=== PATIENT | female | born 1960 | race Caucasian/White ===

== ENCOUNTER 2022-08-12 12:59 | Inpatient (IN) | payer OTHER ==
[2022-08-12 13:33] VITALS: BMI 18.1
[2022-08-12] MEDS ORDERED: INSULIN SLIDING SCALE (NOVOLOG) 1 VIAL SQ ONE (14:34)
[2022-08-12] MEDS ORDERED: INSULIN (NOVOLOG) ASPART 100 UNITS/ML 10ML VIAL ONE (14:36)
[2022-08-12] MEDS ORDERED: LOPERAMIDE HCL 2 MG CAPSULE PO PRN (14:54)
[2022-08-12] MEDS ORDERED: NICOTINE 10 MG CARTRIDGE (INHALER) IH PRN (14:54)
[2022-08-12] MEDS ORDERED: IBUPROFEN 400 MG TABLET (FP) PO PRN (14:54)
[2022-08-12] MEDS ORDERED: P-EPHED 60MG/TRIPROLIDI 2.5MG TABLET PO PRN (14:54)
[2022-08-12] MEDS ORDERED: guaiFENesin 200 MG/10 ML 10 ML UNIT-DOSE CUPS PO PRN (14:54)
[2022-08-12] MEDS ORDERED: MAGNESIUM CITRATE 300 ML BOTTLE PO PRN (14:54)
[2022-08-12] MEDS ORDERED: PATIENT'S OWN MEDICATION (NON-FORMULARY) (Albuterol Sulfate [Proair Respiclick] 90 MCG Aer IH PRN (14:56)
[2022-08-12] MEDS: hydrOXYzine PAMOATE 25 MG CAPSULE (FP) PO SCH ×2 (18:47→22:12)
[2022-08-12] MEDS: MELATONIN 5 MG TABLETS PO SCH (22:12)
[2022-08-12] MEDS: MONTELUKAST NA 10 MG TABLET PO SCH (22:12)
[2022-08-12] MEDS: THIAMINE HCL 100 MG TABLET (FP) PO SCH (22:12)
[2022-08-12] MEDS: INSULIN SLIDING SCALE (NOVOLOG) 1 VIAL SQ SCH (22:13)
[2022-08-12] MEDS: ATORVASTATIN CA 40 MG TABLET (FP) PO SCH (22:14)
[2022-08-12] MEDS: BUDESONIDE/FORMETEROL FUMARATE 160/4.5 mcg INHALER IH SCH (22:14)
[2022-08-13] MEDS: hydrOXYzine PAMOATE 25 MG CAPSULE (FP) PO SCH ×5 (06:40→21:35)
[2022-08-13] MEDS ORDERED: INSULIN (NOVOLOG) ASPART 100 UNITS/ML 10ML VIAL ONE ×2 (06:44→16:39)
[2022-08-13] MEDS: INSULIN SLIDING SCALE (NOVOLOG) 1 VIAL SQ SCH ×4 (06:46→21:43)
[2022-08-13 09:51] LABS: ALBUMIN 3.3 g/dl (3.4-5.0)
[2022-08-13 09:52] LABS: BLOOD UREA NITROGEN 21.4 mg/dL (7-18)
[2022-08-13 09:55] LABS: CREATININE 0.9 mg/dL (0.55-1.3)
[2022-08-13 09:57] LABS: BILIRUBIN,TOTAL 0.2 mg/dL (0.2-1); TOT PROT 6.4 g/dl (6.4-8.2)
[2022-08-13 09:58] LABS: HEMATOCRIT 33.7 % (32.4-45.2); HEMOGLOBIN 10.7 GM/dL (10.7-15.3); MCH 29.3 pg (25.7-33.7); MCHC 31.8 g/dl (32.0-36.0); MEAN CELL VOLUME 92.3 fl (80-96); MEAN PLT VOLUME 8.9 fl (7.5-11.1); PLATELET COUNT 326 10^3/uL (134-434); RBC 3.65 M/mm3 (3.60-5.2); RDW 15.9 % (11.6-15.6)
[2022-08-13] MEDS: PANTOPRAZOLE 20 MG TABLET PO SCH (10:32)
[2022-08-13] MEDS: NICOTINE 7 MG/24 HOURS TOPICAL PATCH TD SCH (10:32)
[2022-08-13] MEDS: PRENATAL VITAMINS W/ FOLIC ACID TABLET (FP) PO SCH (10:32)
[2022-08-13] MEDS: BUDESONIDE/FORMETEROL FUMARATE 160/4.5 mcg INHALER IH SCH ×2 (10:32→21:34)
[2022-08-13] MEDS: ACETAMINOPHEN 325 MG TABLET (FP) PO PRN ×2 (10:33→21:47)
[2022-08-13 11:36] LABS: SYPHILIS W/ RPR CONF REACTIVE (NONREACTIVE)
[2022-08-13] MEDS: PATIENT'S OWN MEDICATION (NON-FORMULARY) (Umeclidinium Bromide [Incruse Ellipta] 62.5 MCG IH SCH (12:31)
[2022-08-13] MEDS: busPIRone HCL 5 MG TABLET PO SCH ×2 (13:17→21:34)
[2022-08-13] MEDS ORDERED: KETOCONAZOLE 2 % SHAMPOO 120 ML BOTTLE TP ONE (14:24)
[2022-08-13 14:59] LABS: PH,URINE 5.5 (5.0-8.0); URINE APPEARANCE CLEAR; URINE BILIRUBIN NEGATIVE (NEGATIVE); URINE COLOR YELLOW; URINE GLUCOSE (UA) 3+ (NEGATIVE); URINE KETONE NEGATIVE (NEGATIVE); URINE LEUK ESTERASE NEGATIVE (NEGATIVE); URINE NITRITE NEGATIVE (NEGATIVE); URINE PROTEIN NEGATIVE (NEGATIVE); URINE UROBILINOGEN 0.2 mg/dL (0.2-1.0)
[2022-08-13] MEDS: QUEtiapine FUMARATE 400 MG TABLET PO SCH (21:35)
[2022-08-13] MEDS: MONTELUKAST NA 10 MG TABLET PO SCH (21:35)
[2022-08-13] MEDS: ATORVASTATIN CA 40 MG TABLET (FP) PO SCH ×2 (21:35→21:40)
[2022-08-13] MEDS: LEVOTHYROXINE NA 112 MCG TABLET (FP) PO SCH (21:35)
[2022-08-13] MEDS: MELATONIN 5 MG TABLETS PO SCH (21:36)
[2022-08-13] MEDS: THIAMINE HCL 100 MG TABLET (FP) PO SCH (21:36)
[2022-08-14] MEDS: INSULIN SLIDING SCALE (NOVOLOG) 1 VIAL SQ SCH ×4 (06:37→21:59)
[2022-08-14] MEDS: hydrOXYzine PAMOATE 25 MG CAPSULE (FP) PO SCH ×5 (08:30→21:57)
[2022-08-14] MEDS: LEVOTHYROXINE NA 112 MCG TABLET (FP) PO SCH (08:30)
[2022-08-14] MEDS ORDERED: PATIENT'S OWN MEDICATION (NON-FORMULARY) (Fluticasone Propionate [Flovent Diskus] 50 MCG B IH SCH (10:00)
[2022-08-14] MEDS: PANTOPRAZOLE 20 MG TABLET PO SCH (11:01)
[2022-08-14] MEDS: BUDESONIDE/FORMETEROL FUMARATE 160/4.5 mcg INHALER IH SCH ×2 (11:01→21:57)
[2022-08-14] MEDS: NICOTINE 7 MG/24 HOURS TOPICAL PATCH TD SCH (11:03)
[2022-08-14] MEDS: PRENATAL VITAMINS W/ FOLIC ACID TABLET (FP) PO SCH (11:05)
[2022-08-14] MEDS: PATIENT'S OWN MEDICATION (NON-FORMULARY) (Umeclidinium Bromide [Incruse Ellipta] 62.5 MCG IH SCH (11:05)
[2022-08-14] MEDS: busPIRone HCL 5 MG TABLET PO SCH ×2 (11:05→21:56)
[2022-08-14] MEDS: ACETAMINOPHEN 325 MG TABLET (FP) PO PRN (11:08)
[2022-08-14] MEDS ORDERED: INSULIN (NOVOLOG) ASPART 100 UNITS/ML 10ML VIAL ONE ×2 (11:12→16:48)
[2022-08-14] MEDS ORDERED: INSULIN SLIDING SCALE (NOVOLOG) 1 VIAL SQ ONE (18:57)
[2022-08-14] MEDS: ATORVASTATIN CA 40 MG TABLET (FP) PO SCH (21:56)
[2022-08-14] MEDS: MONTELUKAST NA 10 MG TABLET PO SCH (21:56)
[2022-08-14] MEDS: QUEtiapine FUMARATE 400 MG TABLET PO SCH (21:57)
[2022-08-14] MEDS: THIAMINE HCL 100 MG TABLET (FP) PO SCH ×2 (21:57→22:01)
[2022-08-14] MEDS: MELATONIN 5 MG TABLETS PO SCH (21:57)
[2022-08-15] MEDS: hydrOXYzine PAMOATE 25 MG CAPSULE (FP) PO SCH ×5 (06:30→22:01)
[2022-08-15] MEDS ORDERED: INSULIN (NOVOLOG) ASPART 100 UNITS/ML 10ML VIAL ONE (06:36)
[2022-08-15] MEDS: INSULIN SLIDING SCALE (NOVOLOG) 1 VIAL SQ SCH ×4 (06:37→22:01)
[2022-08-15] MEDS: LEVOTHYROXINE NA 112 MCG TABLET (FP) PO SCH (06:59)
[2022-08-15] MEDS: BUDESONIDE/FORMETEROL FUMARATE 160/4.5 mcg INHALER IH SCH ×2 (10:15→22:02)
[2022-08-15] MEDS: NICOTINE 7 MG/24 HOURS TOPICAL PATCH TD SCH (10:16)
[2022-08-15] MEDS: PRENATAL VITAMINS W/ FOLIC ACID TABLET (FP) PO SCH (10:16)
[2022-08-15] MEDS: busPIRone HCL 5 MG TABLET PO SCH ×2 (10:16→22:01)
[2022-08-15] MEDS: PANTOPRAZOLE 20 MG TABLET PO SCH (10:16)
[2022-08-15] MEDS: PATIENT'S OWN MEDICATION (NON-FORMULARY) (Umeclidinium Bromide [Incruse Ellipta] 62.5 MCG IH SCH (10:18)
[2022-08-15] MEDS: MELATONIN 5 MG TABLETS PO SCH (22:01)
[2022-08-15] MEDS: MONTELUKAST NA 10 MG TABLET PO SCH (22:01)
[2022-08-15] MEDS: ATORVASTATIN CA 40 MG TABLET (FP) PO SCH (22:01)
[2022-08-15] MEDS: QUEtiapine FUMARATE 400 MG TABLET PO SCH (22:01)
[2022-08-15] MEDS: ACETAMINOPHEN 325 MG TABLET (FP) PO PRN (22:02)
[2022-08-16] MEDS ORDERED: INSULIN (NOVOLOG) ASPART 100 UNITS/ML 10ML VIAL ONE (06:18)
[2022-08-16] MEDS: LEVOTHYROXINE NA 112 MCG TABLET (FP) PO SCH (06:18)
[2022-08-16] MEDS: INSULIN SLIDING SCALE (NOVOLOG) 1 VIAL SQ SCH ×4 (06:19→21:58)
[2022-08-16] MEDS: hydrOXYzine PAMOATE 25 MG CAPSULE (FP) PO SCH ×2 (06:21→13:07)
[2022-08-16] MEDS: PANTOPRAZOLE 20 MG TABLET PO SCH (10:19)
[2022-08-16] MEDS: BUDESONIDE/FORMETEROL FUMARATE 160/4.5 mcg INHALER IH SCH ×2 (10:19→21:59)
[2022-08-16] MEDS: NICOTINE 7 MG/24 HOURS TOPICAL PATCH TD SCH (10:20)
[2022-08-16] MEDS: PRENATAL VITAMINS W/ FOLIC ACID TABLET (FP) PO SCH (10:20)
[2022-08-16] MEDS: busPIRone HCL 5 MG TABLET PO SCH ×2 (10:20→21:57)
[2022-08-16] MEDS: PATIENT'S OWN MEDICATION (NON-FORMULARY) (Umeclidinium Bromide [Incruse Ellipta] 62.5 MCG IH SCH (10:22)
[2022-08-16] MEDS: INSULIN (NOVOLOG) ASPART 100 UNITS/ML 10ML VIAL SQ SCH (17:04)
[2022-08-16] MEDS: MELATONIN 5 MG TABLETS PO SCH (21:57)
[2022-08-16] MEDS: QUEtiapine FUMARATE 400 MG TABLET PO SCH (21:57)
[2022-08-16] MEDS: THIAMINE HCL 100 MG TABLET (FP) PO SCH (21:57)
[2022-08-16] MEDS: ATORVASTATIN CA 40 MG TABLET (FP) PO SCH (21:57)
[2022-08-16] MEDS: MONTELUKAST NA 10 MG TABLET PO SCH (21:57)
[2022-08-17] MEDS: LEVOTHYROXINE NA 112 MCG TABLET (FP) PO SCH (06:22)
[2022-08-17] MEDS: INSULIN SLIDING SCALE (NOVOLOG) 1 VIAL SQ SCH ×4 (06:26→22:01)
[2022-08-17] MEDS: INSULIN (NOVOLOG) ASPART 100 UNITS/ML 10ML VIAL SQ SCH ×3 (06:26→16:58)
[2022-08-17] MEDS ORDERED: INSULIN (NOVOLOG) ASPART 100 UNITS/ML 10ML VIAL ONE (06:37)
[2022-08-17] MEDS: PRENATAL VITAMINS W/ FOLIC ACID TABLET (FP) PO SCH (10:40)
[2022-08-17] MEDS: NICOTINE 7 MG/24 HOURS TOPICAL PATCH TD SCH (10:40)
[2022-08-17] MEDS: PANTOPRAZOLE 20 MG TABLET PO SCH (10:40)
[2022-08-17] MEDS: BUDESONIDE/FORMETEROL FUMARATE 160/4.5 mcg INHALER IH SCH ×2 (10:41→23:10)
[2022-08-17] MEDS: PATIENT'S OWN MEDICATION (NON-FORMULARY) (Umeclidinium Bromide [Incruse Ellipta] 62.5 MCG IH SCH (10:42)
[2022-08-17] MEDS: busPIRone HCL 5 MG TABLET PO SCH ×2 (11:52→22:01)
[2022-08-17] MEDS: ATORVASTATIN CA 40 MG TABLET (FP) PO SCH (22:00)
[2022-08-17] MEDS: QUEtiapine FUMARATE 400 MG TABLET PO SCH (22:00)
[2022-08-17] MEDS: MONTELUKAST NA 10 MG TABLET PO SCH (22:00)
[2022-08-17] MEDS: THIAMINE HCL 100 MG TABLET (FP) PO SCH (22:01)
[2022-08-17] MEDS: MELATONIN 5 MG TABLETS PO SCH (22:01)
[2022-08-18] MEDS: INSULIN SLIDING SCALE (NOVOLOG) 1 VIAL SQ SCH ×4 (06:38→22:21)
[2022-08-18] MEDS: INSULIN (NOVOLOG) ASPART 100 UNITS/ML 10ML VIAL SQ SCH ×3 (06:40→16:49)
[2022-08-18] MEDS: LEVOTHYROXINE NA 112 MCG TABLET (FP) PO SCH (06:47)
[2022-08-18] MEDS: PANTOPRAZOLE 20 MG TABLET PO SCH (10:15)
[2022-08-18] MEDS: PRENATAL VITAMINS W/ FOLIC ACID TABLET (FP) PO SCH (10:15)
[2022-08-18] MEDS: busPIRone HCL 5 MG TABLET PO SCH ×2 (10:15→22:20)
[2022-08-18] MEDS: NICOTINE 7 MG/24 HOURS TOPICAL PATCH TD SCH (10:16)
[2022-08-18] MEDS: BUDESONIDE/FORMETEROL FUMARATE 160/4.5 mcg INHALER IH SCH ×2 (10:18→22:21)
[2022-08-18] MEDS: PATIENT'S OWN MEDICATION (NON-FORMULARY) (Umeclidinium Bromide [Incruse Ellipta] 62.5 MCG IH SCH (10:20)
[2022-08-18] MEDS ORDERED: PATIENT'S OWN MEDICATION (NON-FORMULARY) (Insulin Degludec [Tresiba Flextouch U-100] 100 U SQ SCH (22:00)
[2022-08-18] MEDS: ATORVASTATIN CA 40 MG TABLET (FP) PO SCH (22:19)
[2022-08-18] MEDS: THIAMINE HCL 100 MG TABLET (FP) PO SCH (22:19)
[2022-08-18] MEDS: MELATONIN 5 MG TABLETS PO SCH (22:20)
[2022-08-18] MEDS: MONTELUKAST NA 10 MG TABLET PO SCH (22:20)
[2022-08-18] MEDS: QUEtiapine FUMARATE 400 MG TABLET PO SCH (22:21)
[2022-08-19] MEDS: LEVOTHYROXINE NA 112 MCG TABLET (FP) PO SCH (06:56)
[2022-08-19] MEDS: INSULIN SLIDING SCALE (NOVOLOG) 1 VIAL SQ SCH ×3 (07:17→16:54)
[2022-08-19] MEDS: INSULIN (NOVOLOG) ASPART 100 UNITS/ML 10ML VIAL SQ SCH ×2 (08:29→12:03)
[2022-08-19] MEDS: PRENATAL VITAMINS W/ FOLIC ACID TABLET (FP) PO SCH (10:23)
[2022-08-19] MEDS: PANTOPRAZOLE 20 MG TABLET PO SCH (10:23)
[2022-08-19] MEDS: PATIENT'S OWN MEDICATION (NON-FORMULARY) (Umeclidinium Bromide [Incruse Ellipta] 62.5 MCG IH SCH (10:23)
[2022-08-19] MEDS: busPIRone HCL 5 MG TABLET PO SCH ×2 (10:25→21:20)
[2022-08-19] MEDS: KETOCONAZOLE 2 % SHAMPOO 120 ML BOTTLE TP SCH (10:25)
[2022-08-19] MEDS: ACETAMINOPHEN 325 MG TABLET (FP) PO PRN (10:26)
[2022-08-19] MEDS: NICOTINE 7 MG/24 HOURS TOPICAL PATCH TD SCH (10:27)
[2022-08-19] MEDS: BUDESONIDE/FORMETEROL FUMARATE 160/4.5 mcg INHALER IH SCH ×2 (10:27→21:20)
[2022-08-19] MEDS: ATORVASTATIN CA 40 MG TABLET (FP) PO SCH (21:20)
[2022-08-19] MEDS: QUEtiapine FUMARATE 400 MG TABLET PO SCH (21:20)
[2022-08-19] MEDS: MELATONIN 5 MG TABLETS PO SCH (21:20)
[2022-08-19] MEDS: MONTELUKAST NA 10 MG TABLET PO SCH (21:21)
[2022-08-19] MEDS: THIAMINE HCL 100 MG TABLET (FP) PO SCH (21:21)
[2022-08-19] MEDS ORDERED: INSULIN DEGLUDEC SQ SCH (22:00)
[2022-08-20] MEDS: INSULIN SLIDING SCALE (NOVOLOG) 1 VIAL SQ SCH ×3 (07:51→16:30)
[2022-08-20] MEDS: LEVOTHYROXINE NA 112 MCG TABLET (FP) PO SCH (08:34)
[2022-08-20] MEDS: busPIRone HCL 5 MG TABLET PO SCH ×2 (10:37→21:34)
[2022-08-20] MEDS: PRENATAL VITAMINS W/ FOLIC ACID TABLET (FP) PO SCH (10:37)
[2022-08-20] MEDS: NICOTINE 7 MG/24 HOURS TOPICAL PATCH TD SCH (10:37)
[2022-08-20] MEDS: PANTOPRAZOLE 20 MG TABLET PO SCH (10:37)
[2022-08-20] MEDS: BUDESONIDE/FORMETEROL FUMARATE 160/4.5 mcg INHALER IH SCH ×2 (10:38→21:35)
[2022-08-20] MEDS: PATIENT'S OWN MEDICATION (NON-FORMULARY) (Umeclidinium Bromide [Incruse Ellipta] 62.5 MCG IH SCH (10:39)
[2022-08-20] MEDS: INSULIN DEGLUDEC SQ SCH (21:31)
[2022-08-20] MEDS: hydrOXYzine PAMOATE 25 MG CAPSULE (FP) PO PRN (21:33)
[2022-08-20] MEDS: ATORVASTATIN CA 40 MG TABLET (FP) PO SCH (21:33)
[2022-08-20] MEDS: THIAMINE HCL 100 MG TABLET (FP) PO SCH (21:33)
[2022-08-20] MEDS: MELATONIN 5 MG TABLETS PO SCH (21:34)
[2022-08-20] MEDS: MONTELUKAST NA 10 MG TABLET PO SCH (21:34)
[2022-08-20] MEDS: QUEtiapine FUMARATE 400 MG TABLET PO SCH (21:38)
[2022-08-21] MEDS ORDERED: INSULIN (NOVOLOG) ASPART 100 UNITS/ML 10ML VIAL ONE (04:30)
[2022-08-21] MEDS: LEVOTHYROXINE NA 112 MCG TABLET (FP) PO SCH (06:36)
[2022-08-21] MEDS: INSULIN SLIDING SCALE (NOVOLOG) 1 VIAL SQ SCH ×3 (06:37→16:50)
[2022-08-21] MEDS: busPIRone HCL 5 MG TABLET PO SCH ×2 (10:41→21:38)
[2022-08-21] MEDS: PRENATAL VITAMINS W/ FOLIC ACID TABLET (FP) PO SCH (10:41)
[2022-08-21] MEDS: NICOTINE 7 MG/24 HOURS TOPICAL PATCH TD SCH (10:41)
[2022-08-21] MEDS: PANTOPRAZOLE 20 MG TABLET PO SCH (10:41)
[2022-08-21] MEDS: BUDESONIDE/FORMETEROL FUMARATE 160/4.5 mcg INHALER IH SCH ×2 (10:42→21:40)
[2022-08-21] MEDS: PATIENT'S OWN MEDICATION (NON-FORMULARY) (Umeclidinium Bromide [Incruse Ellipta] 62.5 MCG IH SCH (10:42)
[2022-08-21] MEDS: MAG HYDROX/AL HYDROX/SIMETH 30 ML UNIT-DOSE CUP PO PRN ×2 (15:33→21:40)
[2022-08-21] MEDS: INSULIN DEGLUDEC SQ SCH (21:37)
[2022-08-21] MEDS: QUEtiapine FUMARATE 400 MG TABLET PO SCH (21:38)
[2022-08-21] MEDS: MONTELUKAST NA 10 MG TABLET PO SCH (21:38)
[2022-08-21] MEDS: ATORVASTATIN CA 40 MG TABLET (FP) PO SCH (21:38)
[2022-08-21] MEDS: THIAMINE HCL 100 MG TABLET (FP) PO SCH (21:38)
[2022-08-21] MEDS: MELATONIN 5 MG TABLETS PO SCH (21:38)
[2022-08-22] MEDS: INSULIN SLIDING SCALE (NOVOLOG) 1 VIAL SQ SCH ×3 (06:17→16:43)
[2022-08-22] MEDS: LEVOTHYROXINE NA 112 MCG TABLET (FP) PO SCH (06:17)
[2022-08-22] MEDS: KETOCONAZOLE 2 % SHAMPOO 120 ML BOTTLE TP SCH (10:07)
[2022-08-22] MEDS: NICOTINE 7 MG/24 HOURS TOPICAL PATCH TD SCH (10:09)
[2022-08-22] MEDS: busPIRone HCL 5 MG TABLET PO SCH ×2 (10:09→21:58)
[2022-08-22] MEDS: BUDESONIDE/FORMETEROL FUMARATE 160/4.5 mcg INHALER IH SCH ×2 (10:09→23:02)
[2022-08-22] MEDS: PANTOPRAZOLE 20 MG TABLET PO SCH (10:09)
[2022-08-22] MEDS: PATIENT'S OWN MEDICATION (NON-FORMULARY) (Umeclidinium Bromide [Incruse Ellipta] 62.5 MCG IH SCH (10:09)
[2022-08-22] MEDS: PRENATAL VITAMINS W/ FOLIC ACID TABLET (FP) PO SCH (10:09)
[2022-08-22] MEDS: MAG HYDROX/AL HYDROX/SIMETH 30 ML UNIT-DOSE CUP PO PRN (10:32)
[2022-08-22] MEDS: ACETAMINOPHEN 325 MG TABLET (FP) PO PRN (12:22)
[2022-08-22] MEDS ORDERED: INSULIN (NOVOLOG) ASPART 100 UNITS/ML 10ML VIAL ONE ×2 (12:34→23:13)
[2022-08-22] MEDS: INSULIN DEGLUDEC SQ SCH (21:57)
[2022-08-22] MEDS: THIAMINE HCL 100 MG TABLET (FP) PO SCH (21:58)
[2022-08-22] MEDS: MONTELUKAST NA 10 MG TABLET PO SCH (21:58)
[2022-08-22] MEDS: ATORVASTATIN CA 40 MG TABLET (FP) PO SCH (21:59)
[2022-08-22] MEDS: QUEtiapine FUMARATE 400 MG TABLET PO SCH (21:59)
[2022-08-22] MEDS: MELATONIN 5 MG TABLETS PO SCH (21:59)
[2022-08-23] MEDS: LEVOTHYROXINE NA 112 MCG TABLET (FP) PO SCH (06:16)
[2022-08-23] MEDS: INSULIN SLIDING SCALE (NOVOLOG) 1 VIAL SQ SCH ×3 (07:41→16:58)
[2022-08-23] MEDS: PRENATAL VITAMINS W/ FOLIC ACID TABLET (FP) PO SCH (10:40)
[2022-08-23] MEDS: BUDESONIDE/FORMETEROL FUMARATE 160/4.5 mcg INHALER IH SCH ×2 (10:41→22:07)
[2022-08-23] MEDS: NICOTINE 7 MG/24 HOURS TOPICAL PATCH TD SCH (10:41)
[2022-08-23] MEDS: PANTOPRAZOLE 20 MG TABLET PO SCH (10:41)
[2022-08-23] MEDS: busPIRone HCL 5 MG TABLET PO SCH ×2 (10:41→21:17)
[2022-08-23] MEDS: PATIENT'S OWN MEDICATION (NON-FORMULARY) (Umeclidinium Bromide [Incruse Ellipta] 62.5 MCG IH SCH (10:42)
[2022-08-23] MEDS ORDERED: INSULIN (NOVOLOG) ASPART 100 UNITS/ML 10ML VIAL ONE (16:39)
[2022-08-23] MEDS: MONTELUKAST NA 10 MG TABLET PO SCH (21:15)
[2022-08-23] MEDS: THIAMINE HCL 100 MG TABLET (FP) PO SCH (21:15)
[2022-08-23] MEDS: MELATONIN 5 MG TABLETS PO SCH (21:15)
[2022-08-23] MEDS: QUEtiapine FUMARATE 400 MG TABLET PO SCH (21:15)
[2022-08-23] MEDS: ATORVASTATIN CA 40 MG TABLET (FP) PO SCH (21:16)
[2022-08-23] MEDS: ACETAMINOPHEN 325 MG TABLET (FP) PO PRN (21:57)
[2022-08-23] MEDS: MAG HYDROX/AL HYDROX/SIMETH 30 ML UNIT-DOSE CUP PO PRN (21:59)
[2022-08-23] MEDS: INSULIN DEGLUDEC SQ SCH (22:02)
[2022-08-24] MEDS: INSULIN SLIDING SCALE (NOVOLOG) 1 VIAL SQ SCH ×3 (08:30→16:40)
[2022-08-24] MEDS ORDERED: INSULIN (NOVOLOG) ASPART 100 UNITS/ML 10ML VIAL ONE ×4 (08:57→16:35)
[2022-08-24] MEDS: LEVOTHYROXINE NA 112 MCG TABLET (FP) PO SCH (09:14)
[2022-08-24] MEDS: NICOTINE 7 MG/24 HOURS TOPICAL PATCH TD SCH (10:45)
[2022-08-24] MEDS: PANTOPRAZOLE 20 MG TABLET PO SCH (10:45)
[2022-08-24] MEDS: PRENATAL VITAMINS W/ FOLIC ACID TABLET (FP) PO SCH (10:45)
[2022-08-24] MEDS: BUDESONIDE/FORMETEROL FUMARATE 160/4.5 mcg INHALER IH SCH ×2 (10:46→21:50)
[2022-08-24] MEDS: PATIENT'S OWN MEDICATION (NON-FORMULARY) (Umeclidinium Bromide [Incruse Ellipta] 62.5 MCG IH SCH (10:46)
[2022-08-24] MEDS: busPIRone HCL 5 MG TABLET PO SCH ×2 (10:46→21:08)
[2022-08-24] MEDS: ACETAMINOPHEN 325 MG TABLET (FP) PO PRN ×2 (16:39→21:08)
[2022-08-24] MEDS: INSULIN DEGLUDEC SQ SCH (21:07)
[2022-08-24] MEDS: MONTELUKAST NA 10 MG TABLET PO SCH (21:08)
[2022-08-24] MEDS: THIAMINE HCL 100 MG TABLET (FP) PO SCH (21:08)
[2022-08-24] MEDS: QUEtiapine FUMARATE 400 MG TABLET PO SCH (21:08)
[2022-08-24] MEDS: MAG HYDROX/AL HYDROX/SIMETH 30 ML UNIT-DOSE CUP PO PRN (21:10)
[2022-08-24] MEDS: MELATONIN 5 MG TABLETS PO SCH (21:11)
[2022-08-25] MEDS: LEVOTHYROXINE NA 112 MCG TABLET (FP) PO SCH (06:39)
[2022-08-25] MEDS: INSULIN SLIDING SCALE (NOVOLOG) 1 VIAL SQ SCH ×3 (06:40→16:49)
[2022-08-25] MEDS: NICOTINE 7 MG/24 HOURS TOPICAL PATCH TD SCH (10:22)
[2022-08-25] MEDS: PRENATAL VITAMINS W/ FOLIC ACID TABLET (FP) PO SCH (10:22)
[2022-08-25] MEDS: PANTOPRAZOLE 20 MG TABLET PO SCH (10:23)
[2022-08-25] MEDS: busPIRone HCL 5 MG TABLET PO SCH ×2 (10:23→21:50)
[2022-08-25] MEDS: PATIENT'S OWN MEDICATION (NON-FORMULARY) (Umeclidinium Bromide [Incruse Ellipta] 62.5 MCG IH SCH (10:24)
[2022-08-25] MEDS: BUDESONIDE/FORMETEROL FUMARATE 160/4.5 mcg INHALER IH SCH ×2 (10:24→21:51)
[2022-08-25] MEDS: ACETAMINOPHEN 325 MG TABLET (FP) PO PRN ×2 (10:25→21:52)
[2022-08-25] MEDS ORDERED: INSULIN (NOVOLOG) ASPART 100 UNITS/ML 10ML VIAL ONE ×2 (12:14→16:48)
[2022-08-25] MEDS: KETOCONAZOLE 2 % SHAMPOO 120 ML BOTTLE TP SCH (12:24)
[2022-08-25] MEDS: QUEtiapine FUMARATE 400 MG TABLET PO SCH (21:50)
[2022-08-25] MEDS: THIAMINE HCL 100 MG TABLET (FP) PO SCH (21:50)
[2022-08-25] MEDS: MONTELUKAST NA 10 MG TABLET PO SCH (21:50)
[2022-08-25] MEDS: MELATONIN 5 MG TABLETS PO SCH (21:51)
[2022-08-25] MEDS: INSULIN DEGLUDEC SQ SCH (21:51)
[2022-08-26] MEDS ORDERED: INSULIN (NOVOLOG) ASPART 100 UNITS/ML 10ML VIAL ONE ×2 (05:35→16:47)
[2022-08-26] MEDS: LEVOTHYROXINE NA 112 MCG TABLET (FP) PO SCH (06:31)
[2022-08-26] MEDS: INSULIN SLIDING SCALE (NOVOLOG) 1 VIAL SQ SCH ×3 (07:28→17:19)
[2022-08-26] MEDS: PRENATAL VITAMINS W/ FOLIC ACID TABLET (FP) PO SCH (10:29)
[2022-08-26] MEDS: NICOTINE 7 MG/24 HOURS TOPICAL PATCH TD SCH (10:29)
[2022-08-26] MEDS: PANTOPRAZOLE 20 MG TABLET PO SCH (10:30)
[2022-08-26] MEDS: busPIRone HCL 5 MG TABLET PO SCH ×2 (10:30→21:40)
[2022-08-26] MEDS: PATIENT'S OWN MEDICATION (NON-FORMULARY) (Umeclidinium Bromide [Incruse Ellipta] 62.5 MCG IH SCH (10:31)
[2022-08-26] MEDS: BUDESONIDE/FORMETEROL FUMARATE 160/4.5 mcg INHALER IH SCH ×2 (10:31→22:26)
[2022-08-26] MEDS ORDERED: INSULIN (NOVOLOG) ASPART 100 UNITS/ML 10ML VIAL SQ ONE (17:01)
[2022-08-26] MEDS: QUEtiapine FUMARATE 400 MG TABLET PO SCH (21:41)
[2022-08-26] MEDS: MONTELUKAST NA 10 MG TABLET PO SCH (21:41)
[2022-08-26] MEDS: ACETAMINOPHEN 325 MG TABLET (FP) PO PRN (21:41)
[2022-08-26] MEDS: THIAMINE HCL 100 MG TABLET (FP) PO SCH (21:42)
[2022-08-26] MEDS: MELATONIN 5 MG TABLETS PO SCH (21:42)
[2022-08-26] MEDS: INSULIN DEGLUDEC SQ SCH (21:46)
[2022-08-26] MEDS: CLOTRIMAZOLE 1% VAGINAL CREAM WITH APPLICATOR 45 GM TUBE VG SCH (22:25)
[2022-08-27] MEDS ORDERED: INSULIN (NOVOLOG) ASPART 100 UNITS/ML 10ML VIAL ONE ×4 (04:22→16:21)
[2022-08-27] MEDS: LEVOTHYROXINE NA 112 MCG TABLET (FP) PO SCH (06:24)
[2022-08-27] MEDS: INSULIN SLIDING SCALE (NOVOLOG) 1 VIAL SQ SCH ×3 (07:30→16:26)
[2022-08-27] MEDS: PANTOPRAZOLE 20 MG TABLET PO SCH (10:32)
[2022-08-27] MEDS: PRENATAL VITAMINS W/ FOLIC ACID TABLET (FP) PO SCH (10:32)
[2022-08-27] MEDS: NICOTINE 7 MG/24 HOURS TOPICAL PATCH TD SCH (10:32)
[2022-08-27] MEDS: BUDESONIDE/FORMETEROL FUMARATE 160/4.5 mcg INHALER IH SCH ×2 (10:33→21:34)
[2022-08-27] MEDS: PATIENT'S OWN MEDICATION (NON-FORMULARY) (Umeclidinium Bromide [Incruse Ellipta] 62.5 MCG IH SCH (10:33)
[2022-08-27] MEDS: ACETAMINOPHEN 325 MG TABLET (FP) PO PRN ×2 (10:34→16:27)
[2022-08-27] MEDS: busPIRone HCL 5 MG TABLET PO SCH ×2 (10:34→21:34)
[2022-08-27] MEDS: MELATONIN 5 MG TABLETS PO SCH (21:34)
[2022-08-27] MEDS: QUEtiapine FUMARATE 400 MG TABLET PO SCH (21:34)
[2022-08-27] MEDS: THIAMINE HCL 100 MG TABLET (FP) PO SCH (21:34)
[2022-08-27] MEDS: MONTELUKAST NA 10 MG TABLET PO SCH (21:34)
[2022-08-27] MEDS: CLOTRIMAZOLE 1% VAGINAL CREAM WITH APPLICATOR 45 GM TUBE VG SCH (21:35)
[2022-08-27] MEDS: INSULIN DEGLUDEC SQ SCH (21:35)
[2022-08-28] MEDS ORDERED: INSULIN (NOVOLOG) ASPART 100 UNITS/ML 10ML VIAL ONE (04:13)
[2022-08-28] MEDS: LEVOTHYROXINE NA 112 MCG TABLET (FP) PO SCH (06:36)
[2022-08-28] MEDS: INSULIN SLIDING SCALE (NOVOLOG) 1 VIAL SQ SCH ×3 (07:51→16:45)
[2022-08-28] MEDS: BUDESONIDE/FORMETEROL FUMARATE 160/4.5 mcg INHALER IH SCH ×2 (10:28→21:36)
[2022-08-28] MEDS: PRENATAL VITAMINS W/ FOLIC ACID TABLET (FP) PO SCH (10:28)
[2022-08-28] MEDS: PANTOPRAZOLE 20 MG TABLET PO SCH (10:29)
[2022-08-28] MEDS: KETOCONAZOLE 2 % SHAMPOO 120 ML BOTTLE TP SCH (10:29)
[2022-08-28] MEDS: busPIRone HCL 5 MG TABLET PO SCH ×2 (10:29→21:36)
[2022-08-28] MEDS: NICOTINE 7 MG/24 HOURS TOPICAL PATCH TD SCH (10:30)
[2022-08-28] MEDS: PATIENT'S OWN MEDICATION (NON-FORMULARY) (Umeclidinium Bromide [Incruse Ellipta] 62.5 MCG IH SCH (10:30)
[2022-08-28] MEDS ORDERED: VITAMINS A AND D TOPICAL OINTMENT 60 GM TUBE TP PRN (13:59)
[2022-08-28] MEDS: ACETAMINOPHEN 325 MG TABLET (FP) PO PRN ×2 (16:46→21:37)
[2022-08-28] MEDS: MONTELUKAST NA 10 MG TABLET PO SCH (21:37)
[2022-08-28] MEDS: THIAMINE HCL 100 MG TABLET (FP) PO SCH (21:37)
[2022-08-28] MEDS: MELATONIN 5 MG TABLETS PO SCH (21:37)
[2022-08-28] MEDS: QUEtiapine FUMARATE 400 MG TABLET PO SCH (21:37)
[2022-08-28] MEDS: CLOTRIMAZOLE 1% VAGINAL CREAM WITH APPLICATOR 45 GM TUBE VG SCH (22:00)
[2022-08-28] MEDS: INSULIN DEGLUDEC SQ SCH (23:54)
[2022-08-29] MEDS: LEVOTHYROXINE NA 112 MCG TABLET (FP) PO SCH (06:13)
[2022-08-29] MEDS: INSULIN SLIDING SCALE (NOVOLOG) 1 VIAL SQ SCH ×3 (06:13→16:48)
[2022-08-29] MEDS: BUDESONIDE/FORMETEROL FUMARATE 160/4.5 mcg INHALER IH SCH ×2 (10:07→21:44)
[2022-08-29] MEDS: PRENATAL VITAMINS W/ FOLIC ACID TABLET (FP) PO SCH (10:07)
[2022-08-29] MEDS: busPIRone HCL 5 MG TABLET PO SCH ×2 (10:08→21:44)
[2022-08-29] MEDS: PANTOPRAZOLE 20 MG TABLET PO SCH (10:08)
[2022-08-29] MEDS: NICOTINE 7 MG/24 HOURS TOPICAL PATCH TD SCH (10:08)
[2022-08-29] MEDS: PATIENT'S OWN MEDICATION (NON-FORMULARY) (Umeclidinium Bromide [Incruse Ellipta] 62.5 MCG IH SCH (10:09)
[2022-08-29] MEDS ORDERED: INSULIN (NOVOLOG) ASPART 100 UNITS/ML 10ML VIAL ONE (11:01)
[2022-08-29] MEDS: ACETAMINOPHEN 325 MG TABLET (FP) PO PRN (16:54)
[2022-08-29] MEDS: MONTELUKAST NA 10 MG TABLET PO SCH (21:44)
[2022-08-29] MEDS: THIAMINE HCL 100 MG TABLET (FP) PO SCH (21:44)
[2022-08-29] MEDS: QUEtiapine FUMARATE 400 MG TABLET PO SCH (21:44)
[2022-08-29] MEDS: MELATONIN 5 MG TABLETS PO SCH (21:44)
[2022-08-29] MEDS: CLOTRIMAZOLE 1% VAGINAL CREAM WITH APPLICATOR 45 GM TUBE VG SCH (21:44)
[2022-08-29] MEDS: INSULIN DEGLUDEC SQ SCH (22:34)
[2022-08-29] MEDS: INSULIN (LEVEMIR) 100 UNITS/ML UNITS SQ SCH (22:35)
[2022-08-30] MEDS ORDERED: INSULIN (NOVOLOG) ASPART 100 UNITS/ML 10ML VIAL ONE ×2 (04:21→11:10)
[2022-08-30] MEDS: LEVOTHYROXINE NA 112 MCG TABLET (FP) PO SCH (06:08)
[2022-08-30] MEDS: INSULIN SLIDING SCALE (NOVOLOG) 1 VIAL SQ SCH ×3 (07:00→16:43)
[2022-08-30] MEDS: PRENATAL VITAMINS W/ FOLIC ACID TABLET (FP) PO SCH (10:06)
[2022-08-30] MEDS: PATIENT'S OWN MEDICATION (NON-FORMULARY) (Umeclidinium Bromide [Incruse Ellipta] 62.5 MCG IH SCH (10:07)
[2022-08-30] MEDS: BUDESONIDE/FORMETEROL FUMARATE 160/4.5 mcg INHALER IH SCH ×2 (10:07→21:52)
[2022-08-30] MEDS: NICOTINE 7 MG/24 HOURS TOPICAL PATCH TD SCH (10:08)
[2022-08-30] MEDS: PANTOPRAZOLE 20 MG TABLET PO SCH (10:08)
[2022-08-30] MEDS: busPIRone HCL 5 MG TABLET PO SCH ×2 (10:08→21:07)
[2022-08-30] MEDS: QUEtiapine FUMARATE 400 MG TABLET PO SCH (21:06)
[2022-08-30] MEDS: THIAMINE HCL 100 MG TABLET (FP) PO SCH (21:06)
[2022-08-30] MEDS: MONTELUKAST NA 10 MG TABLET PO SCH (21:06)
[2022-08-30] MEDS: MELATONIN 5 MG TABLETS PO SCH (21:07)
[2022-08-30] MEDS: INSULIN (LEVEMIR) 100 UNITS/ML UNITS SQ SCH (21:09)
[2022-08-30] MEDS: INSULIN DEGLUDEC SQ SCH (21:10)
[2022-08-30] MEDS: CLOTRIMAZOLE 1% VAGINAL CREAM WITH APPLICATOR 45 GM TUBE VG SCH (21:53)
[2022-08-31] MEDS ORDERED: INSULIN (NOVOLOG) ASPART 100 UNITS/ML 10ML VIAL ONE ×3 (04:14→16:34)
[2022-08-31] MEDS: LEVOTHYROXINE NA 112 MCG TABLET (FP) PO SCH (06:15)
[2022-08-31] MEDS: INSULIN SLIDING SCALE (NOVOLOG) 1 VIAL SQ SCH ×3 (08:00→16:42)
[2022-08-31] MEDS: BUDESONIDE/FORMETEROL FUMARATE 160/4.5 mcg INHALER IH SCH ×2 (10:13→21:41)
[2022-08-31] MEDS: PRENATAL VITAMINS W/ FOLIC ACID TABLET (FP) PO SCH (10:13)
[2022-08-31] MEDS: NICOTINE 7 MG/24 HOURS TOPICAL PATCH TD SCH (10:13)
[2022-08-31] MEDS: PANTOPRAZOLE 20 MG TABLET PO SCH (10:14)
[2022-08-31] MEDS: MAGNESIUM HYDROX 2400MG/30ML ORAL SUSPENSION 30 ML CUP PO PRN (10:14)
[2022-08-31] MEDS: KETOCONAZOLE 2 % SHAMPOO 120 ML BOTTLE TP SCH (10:15)
[2022-08-31] MEDS: busPIRone HCL 5 MG TABLET PO SCH ×2 (10:15→21:40)
[2022-08-31] MEDS: PATIENT'S OWN MEDICATION (NON-FORMULARY) (Umeclidinium Bromide [Incruse Ellipta] 62.5 MCG IH SCH (10:15)
[2022-08-31] MEDS ORDERED: COLLOIDAL OATMEAL 1 BAR EACH TP PRN (13:13)
[2022-08-31] MEDS: VITAMINS A AND D TOPICAL OINTMENT 60 GM TUBE TP PRN (14:07)
[2022-08-31] MEDS: MELATONIN 5 MG TABLETS PO SCH (21:37)
[2022-08-31] MEDS: QUEtiapine FUMARATE 400 MG TABLET PO SCH (21:39)
[2022-08-31] MEDS: THIAMINE HCL 100 MG TABLET (FP) PO SCH (21:40)
[2022-08-31] MEDS: ACETAMINOPHEN 325 MG TABLET (FP) PO PRN (21:40)
[2022-08-31] MEDS: MONTELUKAST NA 10 MG TABLET PO SCH (21:40)
[2022-08-31] MEDS: INSULIN DEGLUDEC SQ SCH (21:41)
[2022-08-31] MEDS: CLOTRIMAZOLE 1% VAGINAL CREAM WITH APPLICATOR 45 GM TUBE VG SCH (22:05)
[2022-09-01] MEDS ORDERED: INSULIN (NOVOLOG) ASPART 100 UNITS/ML 10ML VIAL ONE ×2 (04:07→12:06)
[2022-09-01] MEDS: LEVOTHYROXINE NA 112 MCG TABLET (FP) PO SCH (06:22)
[2022-09-01] MEDS: INSULIN SLIDING SCALE (NOVOLOG) 1 VIAL SQ SCH ×3 (07:53→16:57)
[2022-09-01] MEDS: BUDESONIDE/FORMETEROL FUMARATE 160/4.5 mcg INHALER IH SCH ×2 (10:22→21:31)
[2022-09-01] MEDS: NICOTINE 7 MG/24 HOURS TOPICAL PATCH TD SCH (10:23)
[2022-09-01] MEDS: PANTOPRAZOLE 20 MG TABLET PO SCH (10:23)
[2022-09-01] MEDS: PATIENT'S OWN MEDICATION (NON-FORMULARY) (Umeclidinium Bromide [Incruse Ellipta] 62.5 MCG IH SCH (10:23)
[2022-09-01] MEDS: busPIRone HCL 5 MG TABLET PO SCH ×2 (10:23→21:32)
[2022-09-01] MEDS: PRENATAL VITAMINS W/ FOLIC ACID TABLET (FP) PO SCH (10:23)
[2022-09-01] MEDS: VITAMINS A AND D TOPICAL OINTMENT 60 GM TUBE TP PRN (10:26)
[2022-09-01] MEDS ORDERED: AMMONIUM LACTATE 12% LOTION 225 GM BOTTLE TP PRN (10:56)
[2022-09-01] MEDS: MONTELUKAST NA 10 MG TABLET PO SCH (21:32)
[2022-09-01] MEDS: ACETAMINOPHEN 325 MG TABLET (FP) PO PRN (21:32)
[2022-09-01] MEDS: MELATONIN 5 MG TABLETS PO SCH (21:32)
[2022-09-01] MEDS: THIAMINE HCL 100 MG TABLET (FP) PO SCH (21:32)
[2022-09-01] MEDS: QUEtiapine FUMARATE 400 MG TABLET PO SCH (21:32)
[2022-09-01] MEDS: INSULIN DEGLUDEC SQ SCH (21:34)
[2022-09-01] MEDS: CLOTRIMAZOLE 1% VAGINAL CREAM WITH APPLICATOR 45 GM TUBE VG SCH (21:39)
[2022-09-02] MEDS ORDERED: INSULIN (NOVOLOG) ASPART 100 UNITS/ML 10ML VIAL ONE ×2 (05:46→16:37)
[2022-09-02] MEDS: LEVOTHYROXINE NA 112 MCG TABLET (FP) PO SCH (06:15)
[2022-09-02] MEDS: INSULIN SLIDING SCALE (NOVOLOG) 1 VIAL SQ SCH ×3 (07:34→16:41)
[2022-09-02] MEDS: PRENATAL VITAMINS W/ FOLIC ACID TABLET (FP) PO SCH (10:05)
[2022-09-02] MEDS: NICOTINE 7 MG/24 HOURS TOPICAL PATCH TD SCH (10:05)
[2022-09-02] MEDS: BUDESONIDE/FORMETEROL FUMARATE 160/4.5 mcg INHALER IH SCH ×2 (10:06→21:30)
[2022-09-02] MEDS: busPIRone HCL 5 MG TABLET PO SCH ×2 (10:06→21:30)
[2022-09-02] MEDS: PATIENT'S OWN MEDICATION (NON-FORMULARY) (Umeclidinium Bromide [Incruse Ellipta] 62.5 MCG IH SCH (10:06)
[2022-09-02] MEDS: PANTOPRAZOLE 20 MG TABLET PO SCH (10:06)
[2022-09-02] MEDS: MAGNESIUM HYDROX 2400MG/30ML ORAL SUSPENSION 30 ML CUP PO PRN (10:07)
[2022-09-02] MEDS: hydrOXYzine PAMOATE 25 MG CAPSULE (FP) PO PRN ×2 (10:07→21:30)
[2022-09-02] MEDS: VITAMINS A AND D TOPICAL OINTMENT 60 GM TUBE TP PRN (10:09)
[2022-09-02 11:38] LABS: CALCIUM 9.2 mg/dL (8.5-10.1)
[2022-09-02 11:39] LABS: ALBUMIN 3.3 g/dl (3.4-5.0); BLOOD UREA NITROGEN 30.7 mg/dL (7-18)
[2022-09-02 11:44] LABS: TOT PROT 6.3 g/dl (6.4-8.2)
[2022-09-02 11:46] LABS: BILIRUBIN,TOTAL 0.2 mg/dL (0.2-1)
[2022-09-02] MEDS: MONTELUKAST NA 10 MG TABLET PO SCH (21:30)
[2022-09-02] MEDS: QUEtiapine FUMARATE 400 MG TABLET PO SCH (21:30)
[2022-09-02] MEDS: INSULIN DEGLUDEC SQ SCH (21:30)
[2022-09-02] MEDS: THIAMINE HCL 100 MG TABLET (FP) PO SCH (21:30)
[2022-09-02] MEDS: ACETAMINOPHEN 325 MG TABLET (FP) PO PRN (21:31)
[2022-09-02] MEDS: MELATONIN 5 MG TABLETS PO SCH (21:31)
[2022-09-03] MEDS ORDERED: INSULIN (NOVOLOG) ASPART 100 UNITS/ML 10ML VIAL ONE ×3 (06:34→16:17)
[2022-09-03] MEDS: LEVOTHYROXINE NA 112 MCG TABLET (FP) PO SCH (06:40)
[2022-09-03] MEDS: INSULIN SLIDING SCALE (NOVOLOG) 1 VIAL SQ SCH ×3 (06:40→16:21)
[2022-09-03] MEDS: PRENATAL VITAMINS W/ FOLIC ACID TABLET (FP) PO SCH (10:13)
[2022-09-03] MEDS: NICOTINE 7 MG/24 HOURS TOPICAL PATCH TD SCH (10:13)
[2022-09-03] MEDS: KETOCONAZOLE 2 % SHAMPOO 120 ML BOTTLE TP SCH (10:13)
[2022-09-03] MEDS: PATIENT'S OWN MEDICATION (NON-FORMULARY) (Umeclidinium Bromide [Incruse Ellipta] 62.5 MCG IH SCH (10:16)
[2022-09-03] MEDS: BUDESONIDE/FORMETEROL FUMARATE 160/4.5 mcg INHALER IH SCH ×2 (10:16→21:24)
[2022-09-03] MEDS: PANTOPRAZOLE 20 MG TABLET PO SCH (10:18)
[2022-09-03] MEDS: busPIRone HCL 5 MG TABLET PO SCH ×2 (10:18→21:25)
[2022-09-03] MEDS: MELATONIN 5 MG TABLETS PO SCH (21:25)
[2022-09-03] MEDS: QUEtiapine FUMARATE 400 MG TABLET PO SCH (21:25)
[2022-09-03] MEDS: MONTELUKAST NA 10 MG TABLET PO SCH (21:25)
[2022-09-03] MEDS: ACETAMINOPHEN 325 MG TABLET (FP) PO PRN (21:25)
[2022-09-03] MEDS: THIAMINE HCL 100 MG TABLET (FP) PO SCH (21:25)
[2022-09-03] MEDS: hydrOXYzine PAMOATE 25 MG CAPSULE (FP) PO PRN (21:26)
[2022-09-03] MEDS: INSULIN DEGLUDEC SQ SCH (21:31)
[2022-09-04] MEDS: LEVOTHYROXINE NA 112 MCG TABLET (FP) PO SCH (06:15)
[2022-09-04] MEDS: INSULIN SLIDING SCALE (NOVOLOG) 1 VIAL SQ SCH ×3 (06:15→16:38)
[2022-09-04] MEDS: PRENATAL VITAMINS W/ FOLIC ACID TABLET (FP) PO SCH (10:27)
[2022-09-04] MEDS: BUDESONIDE/FORMETEROL FUMARATE 160/4.5 mcg INHALER IH SCH ×2 (10:28→21:31)
[2022-09-04] MEDS: busPIRone HCL 5 MG TABLET PO SCH ×2 (10:28→21:30)
[2022-09-04] MEDS: PANTOPRAZOLE 20 MG TABLET PO SCH (10:28)
[2022-09-04] MEDS: NICOTINE 7 MG/24 HOURS TOPICAL PATCH TD SCH (10:28)
[2022-09-04] MEDS: PATIENT'S OWN MEDICATION (NON-FORMULARY) (Umeclidinium Bromide [Incruse Ellipta] 62.5 MCG IH SCH (10:29)
[2022-09-04] MEDS: VITAMINS A AND D TOPICAL OINTMENT 60 GM TUBE TP PRN (10:31)
[2022-09-04] MEDS ORDERED: INSULIN (NOVOLOG) ASPART 100 UNITS/ML 10ML VIAL ONE ×2 (11:56→16:34)
[2022-09-04] MEDS: ACETAMINOPHEN 325 MG TABLET (FP) PO PRN (21:29)
[2022-09-04] MEDS: MELATONIN 5 MG TABLETS PO SCH (21:29)
[2022-09-04] MEDS: INSULIN DEGLUDEC SQ SCH (21:29)
[2022-09-04] MEDS: MONTELUKAST NA 10 MG TABLET PO SCH (21:30)
[2022-09-04] MEDS: QUEtiapine FUMARATE 400 MG TABLET PO SCH (21:30)
[2022-09-04] MEDS: THIAMINE HCL 100 MG TABLET (FP) PO SCH (21:30)
[2022-09-05] MEDS: LEVOTHYROXINE NA 112 MCG TABLET (FP) PO SCH (06:09)
[2022-09-05] MEDS ORDERED: INSULIN (NOVOLOG) ASPART 100 UNITS/ML 10ML VIAL ONE ×3 (07:28→16:27)
[2022-09-05] MEDS: INSULIN SLIDING SCALE (NOVOLOG) 1 VIAL SQ SCH ×3 (07:31→16:36)
[2022-09-05] MEDS: ACETAMINOPHEN 325 MG TABLET (FP) PO PRN ×2 (10:21→21:07)
[2022-09-05] MEDS: PRENATAL VITAMINS W/ FOLIC ACID TABLET (FP) PO SCH (10:21)
[2022-09-05] MEDS: PATIENT'S OWN MEDICATION (NON-FORMULARY) (Umeclidinium Bromide [Incruse Ellipta] 62.5 MCG IH SCH (10:22)
[2022-09-05] MEDS: BUDESONIDE/FORMETEROL FUMARATE 160/4.5 mcg INHALER IH SCH ×2 (10:22→22:05)
[2022-09-05] MEDS: PANTOPRAZOLE 20 MG TABLET PO SCH (10:22)
[2022-09-05] MEDS: NICOTINE 7 MG/24 HOURS TOPICAL PATCH TD SCH (10:23)
[2022-09-05] MEDS: busPIRone HCL 5 MG TABLET PO SCH ×2 (10:23→21:08)
[2022-09-05] MEDS: THIAMINE HCL 100 MG TABLET (FP) PO SCH (21:08)
[2022-09-05] MEDS: MELATONIN 5 MG TABLETS PO SCH (21:08)
[2022-09-05] MEDS: MONTELUKAST NA 10 MG TABLET PO SCH (21:08)
[2022-09-05] MEDS: QUEtiapine FUMARATE 400 MG TABLET PO SCH (21:08)
[2022-09-05] MEDS: INSULIN DEGLUDEC SQ SCH (21:09)
[2022-09-06] MEDS ORDERED: INSULIN (NOVOLOG) ASPART 100 UNITS/ML 10ML VIAL ONE ×3 (03:51→16:25)
[2022-09-06] MEDS: INSULIN SLIDING SCALE (NOVOLOG) 1 VIAL SQ SCH ×3 (06:18→16:28)
[2022-09-06] MEDS: LEVOTHYROXINE NA 112 MCG TABLET (FP) PO SCH (06:18)
[2022-09-06 07:52] VITALS: RESP 18
[2022-09-06] MEDS: BUDESONIDE/FORMETEROL FUMARATE 160/4.5 mcg INHALER IH SCH ×2 (10:21→21:30)
[2022-09-06] MEDS: PATIENT'S OWN MEDICATION (NON-FORMULARY) (Umeclidinium Bromide [Incruse Ellipta] 62.5 MCG IH SCH (10:21)
[2022-09-06] MEDS: busPIRone HCL 5 MG TABLET PO SCH ×2 (10:22→21:29)
[2022-09-06] MEDS: PANTOPRAZOLE 20 MG TABLET PO SCH (10:22)
[2022-09-06] MEDS: PRENATAL VITAMINS W/ FOLIC ACID TABLET (FP) PO SCH (10:22)
[2022-09-06] MEDS: NICOTINE 7 MG/24 HOURS TOPICAL PATCH TD SCH (10:23)
[2022-09-06] MEDS: KETOCONAZOLE 2 % SHAMPOO 120 ML BOTTLE TP SCH (10:24)
[2022-09-06] MEDS: MELATONIN 5 MG TABLETS PO SCH (21:29)
[2022-09-06] MEDS: QUEtiapine FUMARATE 400 MG TABLET PO SCH (21:29)
[2022-09-06] MEDS: MONTELUKAST NA 10 MG TABLET PO SCH (21:29)
[2022-09-06] MEDS: hydrOXYzine PAMOATE 25 MG CAPSULE (FP) PO PRN (21:29)
[2022-09-06] MEDS: THIAMINE HCL 100 MG TABLET (FP) PO SCH (21:29)
[2022-09-06] MEDS: INSULIN DEGLUDEC SQ SCH (22:28)
[2022-09-07] MEDS: LEVOTHYROXINE NA 112 MCG TABLET (FP) PO SCH (06:23)
[2022-09-07] MEDS: INSULIN SLIDING SCALE (NOVOLOG) 1 VIAL SQ SCH ×3 (06:50→16:44)
[2022-09-07] MEDS ORDERED: INSULIN (NOVOLOG) ASPART 100 UNITS/ML 10ML VIAL ONE ×2 (06:51→16:21)
[2022-09-07 07:14] VITALS: TEMP 98.2
[2022-09-07] MEDS: NICOTINE 7 MG/24 HOURS TOPICAL PATCH TD SCH (10:28)
[2022-09-07] MEDS: PRENATAL VITAMINS W/ FOLIC ACID TABLET (FP) PO SCH (10:28)
[2022-09-07] MEDS: PANTOPRAZOLE 20 MG TABLET PO SCH (10:29)
[2022-09-07] MEDS: BUDESONIDE/FORMETEROL FUMARATE 160/4.5 mcg INHALER IH SCH ×2 (10:29→21:38)
[2022-09-07] MEDS: busPIRone HCL 5 MG TABLET PO SCH ×2 (10:29→21:39)
[2022-09-07] MEDS: PATIENT'S OWN MEDICATION (NON-FORMULARY) (Umeclidinium Bromide [Incruse Ellipta] 62.5 MCG IH SCH (10:30)
[2022-09-07] MEDS: ACETAMINOPHEN 325 MG TABLET (FP) PO PRN (14:17)
[2022-09-07] MEDS: QUEtiapine FUMARATE 400 MG TABLET PO SCH (21:39)
[2022-09-07] MEDS: hydrOXYzine PAMOATE 25 MG CAPSULE (FP) PO PRN (21:39)
[2022-09-07] MEDS: MONTELUKAST NA 10 MG TABLET PO SCH (21:39)
[2022-09-07] MEDS: THIAMINE HCL 100 MG TABLET (FP) PO SCH (21:39)
[2022-09-07] MEDS: MELATONIN 5 MG TABLETS PO SCH (21:40)
[2022-09-07] MEDS: INSULIN DEGLUDEC SQ SCH (21:41)
[2022-09-08] MEDS: LEVOTHYROXINE NA 112 MCG TABLET (FP) PO SCH (06:05)
[2022-09-08] MEDS: INSULIN SLIDING SCALE (NOVOLOG) 1 VIAL SQ SCH (06:05)
[2022-09-08 07:03] VITALS: BP 118/63; PULSE 89
[2022-09-08] MEDS: PRENATAL VITAMINS W/ FOLIC ACID TABLET (FP) PO SCH (09:47)
[2022-09-08] MEDS: BUDESONIDE/FORMETEROL FUMARATE 160/4.5 mcg INHALER IH SCH (09:48)
[2022-09-08] MEDS: PANTOPRAZOLE 20 MG TABLET PO SCH (09:48)
[2022-09-08] MEDS: NICOTINE 7 MG/24 HOURS TOPICAL PATCH TD SCH (09:48)
[2022-09-08] MEDS: PATIENT'S OWN MEDICATION (NON-FORMULARY) (Umeclidinium Bromide [Incruse Ellipta] 62.5 MCG IH SCH (09:48)
[2022-09-08] MEDS: busPIRone HCL 5 MG TABLET PO SCH (09:50)
== END 2022-09-08 10:04 | disposition home or self-care (01) | DRG 772 ==
LOC: YASAS 12:59 → Y6N 16:58 → Y5N 17:21
PROVIDERS: ADMIT Allergy & Immunology; ATTEND Psychiatry & Neurology Pain Medicine
PROC: HZ42ZZZ Group Counseling for Substance Abuse Treatment, Cognitive-Behavioral (ICD-10-PCS; principal; 2022-08-12)
DX: F14.20 Cocaine dependence, uncomplicated (principal); F17.210 Nicotine dependence, cigarettes, uncomplicated; F41.9 Anxiety disorder, unspecified; F32.9 Major depressive disorder, single episode, unspecified; E78.5 Hyperlipidemia, unspecified; E05.90 Thyrotoxicosis, unspecified without thyrotoxic crisis or storm; E11.9 Type 2 diabetes mellitus without complications; Z79.4 Long term (current) use of insulin; E16.2 Hypoglycemia, unspecified; J45.909 Unspecified asthma, uncomplicated; L85.3 Xerosis cutis; R63.4 Abnormal weight loss; Z68.1 Body mass index [BMI] 19.9 or less, adult
CPT/HCPCS: 36415; 71046-TC-FY; 80053; 81003; 82962; 84443; 85027; 86593; 86780; 86803; 87086; C9803-CS; U0003; U0005